=== PATIENT | female | born 1985 | race Caucasian/White ===

== ENCOUNTER 2016-12-07 13:45 | Emergency (ER) | payer MEDICAID ==
[2016-12-07 14:15] VITALS: BP 114/76
[2016-12-07] MEDS ORDERED: Tetan/Diph/Pertus SYR(Tdap)* 0.5 ML SYR(BOOSTRIX) use SYR IM ONE (15:06)
--- NOTE | 2016-12-07 15:19 | UC ---
Laceration HPI - HPI Summary HPI Summary: DROPPED A GLASS VASE LAST NIGHT AROUND 11PM, THEN STEPPED ON A SHARD OF THE BROKEN GLASS. LACERATION, PAIN AND SWELLING LATERAL ASPECT OF SOLE OF LEFT FOOT. UNKNOWN DATE OF LAST TETANUS. - History Of Current Complaint Chief Complaint: UCLaceration Stated Complaint: FOOT LACERATION Time Seen by Provider: 12/07/16 14:58 Hx Obtained From: Patient Hx Last Menstrual Period: 11/12/16 Laceration Location: Foot - LEFT Mechanism Of Injury: Sharp Trauma Onset/Duration: Sudden Onset, Still Present Severity: Moderate Pain Intensity: 3 Pain Scale Used: 0-10 Numeric Aggravating Factors: Other: - PRESSURE WITH WALKING AND STANDING - Allergies/Home Medications Allergies/Adverse Reactions: Allergies Allergy/AdvReac Type Severity Reaction Status Date / Time No Known Allergies Allergy Verified 12/07/16 14:11 PMH/Surg Hx/FS Hx/Imm Hx GI/ History: Ulcer - Surgical History Surgical History: None - Family History Known Family History: Negative: Cardiac Disease, Hypertension, Diabetes Family History: no cardiovascular issues in family lineage - Social History Alcohol Use: Occasionally Substance Use Type: None Smoking Status (MU): Light Every Day Tobacco Smoker Type: Cigarettes Amount Used/How Often: 1/2 ppd Length of Time of Smoking/Using Tobacco: started at age 13 Have You Smoked in the Last Year: Yes Household Exposure Type: Cigarettes Review of Systems Constitutional: Negative Skin: Bruising, Other - LACERATION Respiratory: Negative Cardiovascular: Negative Gastrointestinal: Negative Musculoskeletal: Edema All Other Systems Reviewed And Are Negative: Yes Physical Exam Triage Information Reviewed: Yes Appearance: Well-Appearing, No Pain Distress, Well-Nourished Vital Signs: Initial Vital Signs Temp 97.5 F 12/07/16 14:11 Pulse 66 12/07/16 14:11 Resp 16 12/07/16 14:11 BP 114/76 12/07/16 14:11 Pulse Ox 100 12/07/16 14:11 Vital Signs Reviewed: Yes Eyes: Positive: Conjunctiva Clear ENT: Positive: Hearing grossly normal Neck: Positive: Supple Respiratory: Positive: No respiratory distress, No accessory muscle use Cardiovascular: Positive: Pulses Normal Abdomen Description: Positive: Soft Musculoskeletal: Positive: Edema @ - LEFT FOOT LATERALLY AROUND LACERATION Neurological: Positive: Alert Psychological: Positive: Age Appropriate Behavior Skin: Positive: Other - 2CM LINEAR LACERATION SOLE OF LEFT FOOT Laceration Repair - Laceration Repair 1 Description: Linear Laceration Size After Repair: Length (cm) - 2CM, Width (mm) - 0MM, Depth (mm) - 2MM Modified For Repair: No Irrigation With Pressure Irrigation Device: Yes Closure Material: Skin Adhesive, SteriStrips Laceration Course/Dx - Differential Dx - Laceration/Wound Provider Diagnoses: 1. LACERATION REPAIR LEFT FOOT. 2. TDAP BOOSTER Discharge - Discharge Plan Condition: Stable Disposition: HOME Prescriptions: Cephalexin CAP* [Keflex 500 CAP*] 1,000 mg PO BID #20 cap Patient Education Materials: Laceration (ED) Forms: *Work Release Referrals: Pati Barros MD [Primary Care Provider] - If Needed Additional Instructions: SEEK FOLLOW-UP IF YOU DEVELOP SPREADING REDNESS OF THE SKIN, PURULENT DRAINAGE, FEVER, INCREASED PAIN OR ANY OTHER CONCERNING SYMPTOMS. THE STERISTRIPS WILL FALL OFF ON THEIR OWN IN THE NEXT 1-2 WEEKS. DO NOT PUT ANY OINTMENT ON TOP OF THEM. DO NOT SUBMERGE IN WATER FOR PROLONGED PERIOD OF TIME. OKAY FOR BRIEF SHOWER AFTER 24 HOURS AND THEN BE SURE TO ALLOW TO DRY COMPLETELY. TETANUS IMMUNIZATION GIVEN (TDAP): You have been given an immunization against tetanus. Please record this in your records. In general, a booster is needed only once every 10 years. The tetanus shot protects against tetanus or "lockjaw," which is a complication of certain wound infections (the tetanus shot cannot protect against the actual infection). The immunization site may become warm and red due to local reaction. If this occurs, apply warm compresses and take aspirin or ibuprofen to reduce inflammation and discomfort. Return for evaluation if the reaction becomes severe.
== END 2016-12-07 16:09 | disposition home or self-care (01) ==
LOC: UCEAST 13:45
DX: S91.312A Laceration without foreign body, left foot, initial encounter (principal); F17.210 Nicotine dependence, cigarettes, uncomplicated; W25.XXXA Contact with sharp glass, initial encounter; Y92.9 Unspecified place or not applicable
CPT/HCPCS: 12001; 90471; 90715; 99212; G0463

== ENCOUNTER 2017-05-01 17:47 | Emergency (ER) | payer OTHER ==
[2017-05-01 17:59] VITALS: BP 153/92
[2017-05-01] MEDS ORDERED: HYDROcodone/ACETAMIN 5-325 MG* 1 TAB PO ONE (18:34)
[2017-05-01] MEDS ORDERED: Amoxicillin/Clavulanate TAB* 875 MG PO ONE ×2 (18:35→18:36)
--- NOTE | 2017-05-01 20:47 | UC ---
Kiran Ma Stephanie, scribed for Will Velazquez MD on 05/01/17 at 1849 . Dental HPI - HPI Summary HPI Summary: The pt is a 31 y/o F presenting to with c/o an infected tooth that began today. The pt states she broke her molar last month and last night she believes she bit down on it incorrectly and injured it further. She reports that today her L cheek became edematous. The pt has attempted to self-treat with Tylenol and ibuprofen for pain relief but has not been able to feel relief. - History of Current Complaint Chief Complaint: UCDentalProblem Stated Complaint: TOOTH INFECTION Time Seen by Provider: 05/01/17 18:29 Hx Obtained From: Patient Hx Last Menstrual Period: 04/14/17 Onset/Duration: Gradual Onset, Lasting Days - 1, Still Present Severity: Severe Pain Intensity: 10 Pain Scale Used: 0-10 Numeric Aggravating Factor(s): Nothing Alleviating Factor(s): Nothing - Allergies/Home Medications Allergies/Adverse Reactions: Allergies Allergy/AdvReac Type Severity Reaction Status Date / Time No Known Allergies Allergy Verified 05/01/17 18:00 PMH/Surg Hx/FS Hx/Imm Hx Previously Healthy: No - The pt denies past medical hx. - Surgical History Surgical History: None - Family History Known Family History: Negative: Cardiac Disease, Hypertension, Diabetes Family History: no cardiovascular issues in family lineage - Social History Occupation: Employed Part-time Lives: With Family Alcohol Use: Occasionally Substance Use Type: None Smoking Status (MU): Light Every Day Tobacco Smoker Type: Cigarettes Amount Used/How Often: 1/2 ppd Length of Time of Smoking/Using Tobacco: started at age 13 Have You Smoked in the Last Year: Yes Household Exposure Type: Cigarettes Review of Systems Constitutional: Negative Eyes: Negative ENT: Dental Pain, Other - L cheek edema Respiratory: Negative Cardiovascular: Negative Gastrointestinal: Negative Genitourinary: Negative Motor: Negative Neurovascular: Negative Musculoskeletal: Negative Neurological: Negative All Other Systems Reviewed And Are Negative: Yes Physical Exam Triage Information Reviewed: Yes Vital Signs: Initial Vital Signs Temp 98.0 F 05/01/17 17:55 Pulse 92 05/01/17 17:55 Resp 12 05/01/17 17:55 BP 153/92 05/01/17 17:55 Pulse Ox 100 05/01/17 17:55 Vital Signs Reviewed: Yes - Additional Comments General: well-appearing, no pain distress Skin: warm, color reflects adequate perfusion, dry Head: normal Eyes: EOMI, RAF ENT: decayed R lower molar. Swelling on R lower jaw. Neck: supple, nontender Respiratory: CTA, breath sounds present Cardiovascular: RRR Abdomen: soft, nontender Bowel: present Musculoskeletal: normal, strength/ROM intact Neurological: normal, sensory/motor intact, A&O x3 Psychological: affect/mood appropriate Dental Complaint Course/Dx - Course Course Of Treatment: Medications reviewed. BP noted and advised to follow up with PCP. - Differential Dx/Diagnosis Provider Diagnoses: DENTAL ABSCESS. elevated BP without dx of HTN Discharge - Discharge Plan Condition: Stable Disposition: HOME Prescriptions: Amoxicillin PO (*) [Amoxicillin 500 MG CAP*] 500 mg PO TID #28 cap HYDROcodone/ACETAMIN 5-325 MG* [Cayuta 5-325 TAB*] 1 tab PO Q6H PRN #10 tab MDD 4 PRN Reason: Pain Patient Education Materials: Dental Abscess (ED) Referrals: [facility] [place] [facility] [Outside] Additional Instructions: FOLLOW UP WITH YOUR DENTIST. GET RECHECKED FOR ANY WORSENING OF YOUR CONDITION OR QUESTIONS OR CONCERNS. YOUR BLOOD PRESSURE WAS ELEVATED DURING TODAY'S VISIT; FOLLOW UP WITH YOUR PCP WITHIN ONE WEEK FOR FURTHER EVALUATION. The documentation as recorded by the Kiran caraballo Stephanie accurately reflects the service I personally performed and the decisions made by me, Will Velazquez MD.
== END 2017-05-01 19:07 | disposition home or self-care (01) ==
LOC: UCEAST 17:47
DX: K04.7 Periapical abscess without sinus (principal); R03.0 Elevated blood-pressure reading, without diagnosis of hypertension; Z11.4 Encounter for screening for human immunodeficiency virus [HIV]; F17.210 Nicotine dependence, cigarettes, uncomplicated
CPT/HCPCS: 36415; 86703; 99202; A9270-GY; G0463

== ENCOUNTER 2018-06-26 08:32 | Emergency (ER) | payer SELFPAY ==
[2018-06-26 08:52] VITALS: BP 126/81
--- NOTE | 2018-06-26 09:17 | UC ---
Eye Complaint HPI - HPI Summary HPI Summary: 32-year-old female presents with complaints of redness to her right eye. States she woke up this morning and noticed painless redness to the inner corner of her right eye. No known injury. Denies visual disturbances, photophobia, itching, tearing, or drainage. - History of Current Complaint Chief Complaint: UCEye Stated Complaint: EYE COMPLAINT Time Seen by Provider: 06/26/18 08:59 Hx Obtained From: Patient Hx Last Menstrual Period: 06/19/18 Pain Intensity: 0 Eyes: 1 - Left 2 - Right 3 - Small subconjunctival hemorrhage - Allergies/Home Medications Allergies/Adverse Reactions: Allergies Allergy/AdvReac Type Severity Reaction Status Date / Time No Known Allergies Allergy Verified 06/26/18 08:52 Home Medications: Home Medications B12 1 mg PO DAILY WITH MEAL 06/26/18 [History Confirmed 06/26/18] PMH/Surg Hx/FS Hx/Imm Hx Previously Healthy: Yes - Denies significant PMH - Surgical History Surgical History: None Surgery Procedure, Year, and Place: denies - Family History Known Family History: Positive: None Negative: Cardiac Disease, Hypertension, Diabetes Family History: no cardiovascular issues in family lineage - Social History Occupation: Employed Part-time Lives: With Family Alcohol Use: Occasionally Substance Use Type: None Smoking Status (MU): Heavy Every Day Tobacco Smoker Type: Cigarettes Amount Used/How Often: 1/2 ppd Length of Time of Smoking/Using Tobacco: started at age 13 Have You Smoked in the Last Year: Yes Household Exposure Type: Cigarettes Review of Systems All Other Systems Reviewed And Are Negative: Yes Constitutional: Negative: Fever, Chills Eyes: Positive: Eye Redness. Negative: Blurred Vision, Diplopia, Drainage, Photophobia ENT: Negative: Sore Throat, Ear Ache, Nasal Discharge, Sinus Congestion, Sinus Pain/Tenderness Respiratory: Positive: Negative Cardiovascular: Positive: Negative Gastrointestinal: Positive: Negative Genitourinary: Positive: Negative Musculoskeletal: Positive: Negative Neurological: Positive: Negative Is Patient Immunocompromised?: No Physical Exam - Summary Physical Exam Summary: GENERAL APPEARANCE: Well developed, well nourished, alert and cooperative, and appears to be in no acute distress. EYES: Small suconjunctival hemorrhage noted (see diagram). PERRL, EOM intact. Vision is grossly intact. No drainage. CARDIAC: Normal S1 and S2. No S3, S4 or murmurs. Rhythm is regular. There is no peripheral edema, cyanosis or pallor. Extremities are warm and well perfused. Capillary refill is less than 2 seconds. Peripheral pulses intact. LUNGS: Clear to auscultation without rales, rhonchi, wheezing or diminished breath sounds. ABDOMEN: Positive bowel sounds. Soft, nondistended, nontender. No guarding or rebound. No masses or hepatosplenomegally. MUSKULOSKELETAL: ROM intact to all extremities. No joint erythema or tenderness. Normal muscular development. Normal gait. SKIN: Skin normal color, texture and turgor with no lesions or eruptions. Triage Information Reviewed: Yes Vital Signs: Initial Vital Signs Temp 97.8 F 06/26/18 08:46 Pulse 81 06/26/18 08:46 Resp 18 06/26/18 08:46 BP 126/81 06/26/18 08:46 Pulse Ox 98 06/26/18 08:46 Vital Signs Reviewed: Yes Eye Complaint Course/Dx - Course Course Of Treatment: 32-year-old female presents with complaints of redness to her right eye. States she woke up this morning and noticed painless redness to the inner corner of her right eye. No known injury. Denies visual disturbances, photophobia, itching, tearing, or drainage. Afebrile. Vital signs stable. Exam remarkable for a subconjunctival hemorrhage of the right eye. Recommending watchful waiting at this time. Follow-up with primary care provider as needed. Anticipatory guidance and symptoms reviewed with the patient. Verbalizes understanding and agrees plan of care. - Differential Dx/Diagnosis Differential Diagnosis/HQI/PQRI: Conjunctivitis, Corneal Abrasion, Foreign Body Provider Diagnosis: Subconjunctival hemorrhage Discharge - Sign-Out/Discharge Documenting (check all that apply): Patient Departure All imaging exams completed and their final reports reviewed: No Studies - Discharge Plan Condition: Stable Disposition: HOME Patient Education Materials: Subconjunctival Hemorrhage (ED) Forms: *Work Release Referrals: No Primary Care Phys,NOPCP [Primary Care Provider] - Additional Instructions: The redness in your eye is from a ruptured surface blood vessel. These are not harmful and will resolve on their own over the next several days. Follow up with your primary care provider as needed. Seek immediate medical attention in the emergency room if you have severe eye pain, visual disturbances, loss of vision, or any worsening of symptoms. - Billing Disposition and Condition Condition: STABLE Disposition: Home - Attestation Statements Provider Attestation: Per institutional requirements, I have reviewed the chart, however, I was not consulted specifically or made aware of this patient by the midlevel provider. I did not personally evaluate, interact with , or disposition this patient.
[2018-06-26] MEDS ORDERED: DOXYcycline CAP(*) 100 MG PO ONE (09:41)
== END 2018-06-26 09:49 | disposition home or self-care (01) ==
LOC: UCEAST 08:32
DX: H11.31 Conjunctival hemorrhage, right eye (principal); F17.210 Nicotine dependence, cigarettes, uncomplicated
CPT/HCPCS: 99211; G0463

== ENCOUNTER 2024-04-03 06:50 | Observation (INO) ==
[2024-04-03 07:34] LABS: ABS Basophils 0.1 10^3/uL (0.0-0.1); ABS Lymphocytes 2.5 10^3/uL (1.0-4.8); ABS Monocytes 0.7 10^3/uL (0.0-0.9); ABS Neutrophils 3.7 10^3/uL (1.5-7.6); ABS Nucleated RBC 0.01 10^3/ul; Eosinophil % 0.5 %; Hematocrit 40.5 % (35-45); Hemoglobin 14.1 g/dL (11.5-14.3); Lymphocyte % 36.1 %; Mean Corpuscular Hemoglobin 30.9 pg (27-33); Mean Corpuscular Hgb Conc 34.7 g/dL (31-36); Mean Platelet Volume 7.8 fL (7.5-11.2); Nucleated Red Blood Cells % 0.1 %/100WBC (0.0-0.8); Platelet Count 314 10^3/uL (150-450); Red Blood Count 4.55 10^6/uL (3.63-4.92); Red Cell Distribution Width 14.4 % (12-17); White Blood Count 6.9 10^3/uL (3.8-11.8)
[2024-04-03 07:41] LABS: INR 0.96 (0.85-1.14)
[2024-04-03 08:03] LABS: High Sens Troponin Baseline < 3 pg/mL (<15)
[2024-04-03 08:30] LABS: ALT 15 U/L (7-52); AST 22 U/L (13-39); Albumin 4.2 g/dL (3.5-5.7); Albumin/Globulin Ratio 1.8 (1-3); Alkaline Phosphatase 82 U/L (35-149); Anion Gap 12 mmol/L (2-16); Blood Urea Nitrogen 12 mg/dL (6-24); CO2 Carbon Dioxide 19 mmol/L (22-32); Calcium 9.5 mg/dL (8.6-10.3); Chloride 106 mmol/L (101-111); Creatinine, Serum 0.89 mg/dL (0.51-0.95); Globulin 2.4 g/dL (2-4); Glucose 109 mg/dL (70-100); Sodium 137 mmol/L (135-145); Total Bilirubin 0.4 mg/dL (0.2-1.0); Total Protein 6.6 g/dL (6.4-8.9); eGFR CKD-EPI 84.5 (>60)
[2024-04-03 08:36] LABS: HCG Pregnancy 0.66 mIU/mL
[2024-04-03 09:09] LABS: High Sensitivity Troponin 1 Hr < 3 pg/mL (<15)
[2024-04-03 11:00] LABS: Cholesterol 186 mg/dL; HDL Cholesterol 55.9 mg/dL; LDL Cholesterol 99 mg/dL; Triglycerides 158 mg/dL
[2024-04-03] MEDS ORDERED: Al Hydrox/Mg Hydrox/Simet LIQ 30 ML UDC PO PRN (12:54)
[2024-04-03] MEDS ORDERED: Polyethylene Glycol 3350 17 GM PACKET PO PRN (12:54)
[2024-04-03] MEDS ORDERED: Albuterol HFA INHALER 8 gm MDI INH PRN (13:49)
[2024-04-03] MEDS: Nicotine GUM 4MG FRUIT FLAVOR PO PRN (16:40)
[2024-04-03 17:11] LABS: TSH Ultra Thyroid Stim Horm 7.18 mcIU/mL (0.34-5.60)
[2024-04-04 08:26] LABS: C Reactive Protein < 1.00 mg/L (<8.01)
[2024-04-04 08:44] LABS: Free T4 0.84 ng/dL (0.61-1.12)
[2024-04-04 08:48] LABS: Total T3 157 ng/dL (87-178)
[2024-04-04 11:08] VITALS: BP 114/74
== END 2024-04-04 12:46 | disposition home or self-care (01) ==
LOC: ED 06:50 → EDHOLD 06:50 → MEDTELE 13:36
PROVIDERS: ADMIT Internal Medicine; ATTEND Internal Medicine